=== PATIENT | female | born 1975 | race Caucasian/White ===

== ENCOUNTER → 2022-04-13 09:58 | Outpatient (CLI) | payer OTHER, SELFPAY ==
[2022-04-13 11:17] LABS: Hematocrit 40.4 % (36-46); Hemoglobin 13.5 g/dL (12.0-16.0)
[2022-04-13 11:50] LABS: Alanine Aminotransferase 20 IU/L (<35); Albumin 4.2 g/dL (3.5-5.0); Albumin Globulin Ratio 1.3 (1.0-2.8); Alkaline Phosphatase 41 U/L (38-126); Aspartate Aminotransferase 21 IU/L (14-36); BUN Creatinine Ratio 11.4 (6-22); Bilirubin Total 0.4 mg/dL (0.2-1.3); Blood Urea Nitrogen 10 mg/dL (7-17); Carbon Dioxide 25 mmol/L (22-32); Chloride 106 mmol/L (98-107); Cholesterol 243 mg/dL (140-199); Estimated Glomerular Filt Rate > 60 mL/min (>60); Globulin 3.3 g/dL (1.7-4.1); Glucose 85 mg/dL (70-100); HDL Cholesterol 57 mg/dL (40-60); HEMOLYSIS < 15 (0-50); LDL Cholesterol Calculated 164 mg/dL (<100); Potassium 4.1 mmol/L (3.4-5.1); Sodium 139 mmol/L (137-145); Total Protein 7.5 g/dL (6.3-8.2); Triglycerides 110 mg/dL (35-150)
[2022-04-15 12:19] LABS: Fecal Immunochemical Test Negative (Negative)
== END ==
PROVIDERS: PCP Family Medicine; Referring Provider Family Medicine; Visit Provider Family Medicine
DX: Z00.00 Encounter for general adult medical examination without abnormal findings (principal); Z12.11 Encounter for screening for malignant neoplasm of colon
CPT/HCPCS: 36415; 80053; 80061; 82274; 85014; 85018

== ENCOUNTER → 2022-05-05 15:47 | Outpatient (CLI) | payer OTHER, SELFPAY ==
--- NOTE | 2022-05-05 15:49 | DI.US.S_ITS ---
PROCEDURE: US PELVIC COMPLETE INDICATIONS: OVARIAN FULLNESS TECHNIQUE: Real-time scanning was performed of the pelvic organs, with image documentation. Additional endovaginal scanning was necessary due to incomplete visualization of the adnexal and endometrial structures by transabdominal scanning. COMPARISON: None. FINDINGS: Uterus: Uterus is retroverted and normal in size at 8.4 x 4.7 x 5.6 cm. The myometrium is homogeneous. The endometrium measures 17.9 mm combined thickness. Ovaries: The right ovary measures 2.0 x 3.4 x 2.0 cm, with a calculated ovarian volume of 7.0 cc. The left ovary measures 3.7 x 1.8 x 2.7 cm, with a calculated ovarian volume of 9.2 cc. The ovaries have a normal sonographic appearance. Less than 12 follicles can be seen in each ovary. No adnexal masses are seen. There is a collapsing cyst of the left ovary measuring 1.4 x 0.8 x 1.4 cm. There is a right ovarian hemorrhagic cyst measuring 2.2 x 1.4 x 1.8 cm. Other: No pathologic free abdominal or pelvic fluid. IMPRESSION: 1. The ovaries are unremarkable. There is a hemorrhagic right ovarian cyst and a collapsing left ovarian cyst. 2. Mildly thickened endometrium. Comment: Suggest repeat ultrasound in approximately 6 weeks to document decrease in size of endometrium. We strive to produce accurate, complete, and clear reports of imaging services. To assist us in improving patient care, this report was composed using standard report templates and voice recognition software. Therefore, it may contain abnormal punctuation, insertions and/or omissions. Occasional wrong-word or sound-alike substitutions may occur. Though we review the report and make efforts to correct it, we do recommend that the report be read carefully in proper context to recognize any text inaccuracies. Dictated by: Mansoor Harris M.D. on 05/05/2022 at 17:43 Approved by: Mansoor Harris M.D. on 05/05/2022 at 17:49
== END ==
PROVIDERS: PCP Family Medicine; Referring Provider Family Medicine; Visit Provider Family Medicine
DX: R10.2 Pelvic and perineal pain (principal); N83.201 Unspecified ovarian cyst, right side; N83.292 Other ovarian cyst, left side; R93.89 Abnormal findings on diagnostic imaging of other specified body structures
CPT/HCPCS: 76830; 76856

== ENCOUNTER → 2022-06-22 13:03 | Outpatient (CLI) | payer OTHER, SELFPAY ==
--- NOTE | 2022-06-22 13:06 | DI.US.S_ITS ---
PROCEDURE: US PELVIC COMPLETE INDICATIONS: FOLLOW-UP THICKENED ENDOMETIUM TECHNIQUE: Real-time scanning was performed of the pelvic organs, with image documentation. Additional endovaginal scanning was necessary due to incomplete visualization of the adnexal and endometrial structures by transabdominal scanning. COMPARISON: [facility], US, US PELVIC COMPLETE, 05/05/2022, 15:55. FINDINGS: Uterus: Uterus is anteverted and normal in size at 8.7 x 5.8 x 6.3 cm. The myometrium is homogeneous. The endometrium measures 12.9 mm combined thickness. Ovaries: The right ovary measures 1.2 x 2.5 x 1.4 cm, with a calculated ovarian volume of 2.1 cc. The left ovary measures 2.2 x 3.7 x 2.0 cm, with a calculated ovarian volume of 8.5 cc. Simple left ovarian cyst measuring 2.8 cm. Less than 12 follicles can be seen in each ovary. No adnexal masses are seen. Other: No pathologic free abdominal or pelvic fluid. IMPRESSION: 1. Endometrial complex within normal limits in thickness at 12.9 mm. 2. Resolved complex bilateral ovarian cysts and there is now a 2.8 cm simple left ovarian cyst. We strive to produce accurate, complete, and clear reports of imaging services. To assist us in improving patient care, this report was composed using standard report templates and voice recognition software. Therefore, it may contain abnormal punctuation, insertions and/or omissions. Occasional wrong-word or sound-alike substitutions may occur. Though we review the report and make efforts to correct it, we do recommend that the report be read carefully in proper context to recognize any text inaccuracies. Dictated by: Bruce GARRETT Interpreted: Jesse Isabel MD on 06/22/2022 at 14:31 Transcribed by: MARYLIN on 06/22/2022 at 14:34 Approved by: Jesse Isabel M.D. on 06/22/2022 at 20:27
--- NOTE | 2022-06-22 13:06 | DI.MG.S_ITS ---
BILATERAL DIGITAL SCREENING MAMMOGRAM 3D/2D WITH CAD: 06/22/2022 CLINICAL: Routine screening. Comparison is made to exam dated: 11/07/2020 mammogram. Both breasts are heterogeneously dense, which may obscure small masses (category c / 51-75% glandular tissue). Current study was also evaluated with a Computer Aided Detection (CAD) system. No significant masses, calcifications, or other findings are seen in either breast. There has been no significant interval change. IMPRESSION: NEGATIVE There is no mammographic evidence of malignancy. A 1 year screening mammogram is recommended. Based on the Tyrer Cuzick model (a risk assessment model) the patient's lifetime risk is 14.2% and her 10 year risk is 3.1%. According to the ACR, ACS, and NCCN guidelines, an annual breast MRI exam along with mammogram is recommended if the patient's lifetime risk is 20% or greater. This exam was interpreted at Station ID: [id number]. NOTE: For mammograms, a report in lay terms will be sent to the patient. Approximately 15% of breast malignancies will not be visualized mammographically. In the management of a palpable breast mass, a negative mammogram must not discourage biopsy of a clinically suspicious lesion. Electronically Signed By: Brock garza/jill:06/22/2022 14:13:58 letter sent: Normal Exam ACR BI-RADS Category 1: Negative 3341F
== END ==
PROVIDERS: PCP Family Medicine; Referring Provider Family Medicine; Visit Provider Family Medicine
DX: Z12.31 Encounter for screening mammogram for malignant neoplasm of breast (principal); N83.292 Other ovarian cyst, left side; R93.89 Abnormal findings on diagnostic imaging of other specified body structures
CPT/HCPCS: 76830; 76856; 77063; 77067

== ENCOUNTER → 2023-06-30 14:55 | Outpatient (CLI) | payer OTHER, SELFPAY ==
--- NOTE | 2023-06-30 | DI.MG.S_ITS ---
BILATERAL DIGITAL SCREENING MAMMOGRAM 3D/2D WITH CAD: 06/30/2023 CLINICAL: Routine screening. Comparison is made to exams dated: 06/22/2022 mammogram - [facility] and 11/07/2020 mammogram. Both breasts are heterogeneously dense, which may obscure small masses (category c / 51-75% glandular tissue). Current study was also evaluated with a Computer Aided Detection (CAD) system. There is an asymmetry in the left breast posterior depth medial region seen on the craniocaudal view only. No other significant masses, calcifications, or other findings are seen in either breast. IMPRESSION: INCOMPLETE: NEEDS ADDITIONAL IMAGING EVALUATION The asymmetry in the left breast is indeterminate. Additional views with possible ultrasound are recommended. Based on the Tyrer Cuzick model (a risk assessment model) the patient's lifetime risk is 14.1% and her 10 year risk is 3.2%. According to the ACR, ACS, and NCCN guidelines, an annual breast MRI exam along with mammogram is recommended if the patient's lifetime risk is 20% or greater. This exam was interpreted at Station ID: [id number]. NOTE: For mammograms, a report in lay terms will be sent to the patient. Approximately 15% of breast malignancies will not be visualized mammographically. In the management of a palpable breast mass, a negative mammogram must not discourage biopsy of a clinically suspicious lesion. Electronically Signed By: Brock Knox M.D. lc/:07/01/2023 16:07:07 letter sent: Additional Imaging Needed ACR BI-RADS Category 0: Incomplete 3340F
== END ==
PROVIDERS: PCP Family Medicine; Referring Provider Family Medicine; Visit Provider Family Medicine
DX: Z12.31 Encounter for screening mammogram for malignant neoplasm of breast (principal); R92.333 Mammographic heterogeneous density, bilateral breasts
CPT/HCPCS: 77063; 77067

== ENCOUNTER → 2023-07-22 08:39 | Outpatient (CLI) | payer OTHER, SELFPAY ==
--- NOTE | 2023-07-22 | DI.MG.S_ITS ---
UNILATERAL LEFT DIGITAL DIAGNOSTIC MAMMOGRAM 3D/2D WITH ADDITIONAL VIEWS: 07/22/2023 CLINICAL: Additional evaluation requested from prior study. Comparison is made to exams dated: 06/30/2023 mammogram, 06/22/2022 mammogram - [facility], and 11/07/2020 mammogram. The left breast is heterogeneously dense, which may obscure small masses (category c / 51-75% glandular tissue). There is an asymmetry in the left breast posterior depth medial region seen on the craniocaudal view only. This is not seen in additional views. No other significant masses or calcifications are seen in the breast. IMPRESSION: INCOMPLETE: NEEDS ADDITIONAL IMAGING EVALUATION The asymmetry in the left breast is indeterminate. An ultrasound is recommended. This is less prominent. The adjacent tissue, including small calcifications, are stable from prior imaging. Based on the Tyrer Cuzick model (a risk assessment model) the patient's lifetime risk is 14.1% and her 10 year risk is 3.2%. According to the ACR, ACS, and NCCN guidelines, an annual breast MRI exam along with mammogram is recommended if the patient's lifetime risk is 20% or greater. This exam was interpreted at Station ID: [id number]. NOTE: For mammograms, a report in lay terms will be sent to the patient. Approximately 15% of breast malignancies will not be visualized mammographically. In the management of a palpable breast mass, a negative mammogram must not discourage biopsy of a clinically suspicious lesion. Electronically Signed By: Brock Knox M.D. lc/:07/22/2023 11:20:33 ACR BI-RADS Category 0: Incomplete 3340F
--- NOTE | 2023-07-22 08:40 | DI.US.S_ITS ---
PROCEDURE: US BREAST LT LIMITED COMPARISON: None. INDICATIONS: evaluate abnormal mammo FINDINGS: IMPRESSION: Dictated by: Brock Knox M.D. on 07/22/2023 at 11:21 Approved by: Brock Knox M.D. on 07/22/2023 at 11:22
--- NOTE | 2023-07-22 09:28 | DI.US.S_ITS ---
Patient Name: CINDY VARGAS date: 1975 Sex: F Attending Physician: Mary Beth Indications: Date: 07/22/2023 11:21 At the request of: MARLYN MOTLEY Procedure: US breast LT limited ULTRASOUND OF LEFT BREAST: 07/22/2023 CLINICAL: Patient returns today to evaluate a focal asymmetry in the left breast. Comparison is made to exams dated: 07/22/2023 mammogram, 06/30/2023 mammogram, 06/22/2022 mammogram - [facility], and 11/07/2020 mammogram. Color flow and real-time ultrasound of the left breast were performed. Sanders scale images of the real-time examination were reviewed. No significant abnormalities were seen sonographically in the left breast. Incidental benign 3:00 cyst is present. IMPRESSION: BENIGN There is no sonographic evidence of malignancy. Incidental benign 3:00 cyst is present. There is no abnormality seen in the left breast to correspond with the mammography finding. Return to annual mammogram screening schedule is recommended. This exam was interpreted at Station ID: [id number]. Electronically Signed By: Brock Knox M.D. lc/:07/22/2023 11:21:57 letter sent: Normal Exam Ultrasound BI-RADS: 2 Benign
== END ==
LOC: MAMMO 08:40
PROVIDERS: PCP Family Medicine; Referring Provider Family Medicine; Visit Provider Family Medicine
DX: R92.8 Other abnormal and inconclusive findings on diagnostic imaging of breast (principal); R92.332 Mammographic heterogeneous density, left breast; N60.02 Solitary cyst of left breast
CPT/HCPCS: 76642; 77065; G0279

== ENCOUNTER → 2024-06-14 11:48 | Outpatient (CLI) | payer OTHER, SELFPAY ==
--- NOTE | 2024-06-14 11:51 | DI.CT.S_ITS ---
PROCEDURE: CT LE LT W CON INDICATIONS: TIBIAL PLATEAU FRACTURE TECHNIQUE: Noncontrast 1-1.5 mm axial sections acquired from the mid-patella to the proximal tibia, with coronal and sagittal reformats. COMPARISON: [facility], MR, MR KNEE LEFT WITHOUT CONTRAST, 06/01/2024, 13:19. [facility] [place], CR, XR KNEE 4+ VIEWS LEFT, 06/09/2024, 14:03. FINDINGS: Image quality: Excellent. Bones: Compared to previous MR study, again noted is comminuted and depressed fracture involving lateral tibial plateau with fracture line extending to anterior and lateral cortex of proximal tibial shaft. Slight lateral displacement of fractured fragments are seen. There is up to 7 millimeter depression at lateral tibial plateau fracture site. No other fracture or dislocation. No suspicious intraosseous lesions. No significant patellar subluxation. Mild tricompartmental osteoarthritis is seen with joint space narrowing, subchondral sclerosis and small marginal osteophyte formation. Soft tissues: There is small joint effusion. No calcified intra-articular loose bodies. No abnormal soft tissue calcifications. No popliteal cyst is seen. Distal quadriceps tendon and patellar tendon are intact. Anterior and posterior cruciate ligaments are grossly intact. IMPRESSION: 1. Comminuted, slightly displaced and depressed lateral tibial plateau fracture as above. 2. No other fracture or dislocation. Mild tricompartmental osteoarthritis. No suspicious bony lesions. 3. Small joint effusion, no calcified intra-articular loose bodies. No gross full-thickness tendon or ligament rupture. No abnormal soft tissue calcifications. Dictated by: Trey Najera M.D. on 06/14/2024 at 14:55 Approved by: Trey Najera M.D. on 06/14/2024 at 14:59
== END ==
LOC: CT 11:50
PROVIDERS: PCP Family Medicine; Referring Provider Orthopaedic Surgery Foot and Ankle Surgery; Visit Provider Orthopaedic Surgery Foot and Ankle Surgery
DX: S82.142A Displaced bicondylar fracture of left tibia, initial encounter for closed fracture (principal); M17.12 Unilateral primary osteoarthritis, left knee; M25.462 Effusion, left knee; X58.XXXA Exposure to other specified factors, initial encounter
CPT/HCPCS: 73700

== ENCOUNTER → 2024-10-12 11:26 | Outpatient (CLI) | payer OTHER, SELFPAY ==
[2024-10-12 12:16] LABS: Add Manual Diff / Slide Review NO; Basophils Absolute Auto 0 /uL (0-100); Basophils Percent Auto 0.5 % (0-2); Eosinophils Absolute Auto 100 /uL (0-450); Eosinophils Percent Auto 1.8 % (2-4); Hematocrit 42.1 % (36-46); Hemoglobin 14.2 g/dL (12.0-16.0); Lymphocytes Absolute Auto 1500 /uL (1100-4500); Lymphocytes Percent Auto 29.7 % (25-40); Mean Corpuscular HGB Conc 33.8 % (30-36); Mean Corpuscular Hemoglobin 31.5 PG (26-34); Mean Corpuscular Volume 93.3 fL (80-100); Monocytes Absolute Auto 500 /uL (0-900); Monocytes Percent Auto 9.3 % (3-14); Neutrophils Absolute Auto 2900 /uL (1500-7000); Neutrophils Percent Auto 58.7 % (50-75); Platelet Count 143 X10^3/uL (150-400); Red Blood Cell Count 4.51 X10^6/uL (4.0-5.2); Red Cell Distribution Width 13.3 % (11.6-14.8); White Blood Cell Count 4.9 X10^3/uL (4.5-11.0)
[2024-10-12 12:26] LABS: Hemoglobin A1C% w Est Avg Glu 4.9 % (4.0-6.0)
[2024-10-12 12:32] LABS: Alanine Aminotransferase 25 IU/L (<35); Albumin 4.6 g/dL (3.5-5.0); Albumin Globulin Ratio 1.4 (1.0-2.8); Alkaline Phosphatase 48 U/L (38-126); Aspartate Aminotransferase 30 IU/L (14-36); BUN Creatinine Ratio 15.3 (6-22); Bilirubin Total 0.7 mg/dL (0.2-1.3); Blood Urea Nitrogen 13 mg/dL (7-17); Calcium 9.4 mg/dL (8.4-10.2); Carbon Dioxide 25 mmol/L (22-32); Chloride 105 mmol/L (98-107); Cholesterol 288 mg/dL (140-199); Estimated Glomerular Filt Rate > 60 mL/min (>60); Globulin 3.3 g/dL (1.7-4.1); Glucose 94 mg/dL (70-99); HDL Cholesterol 74 mg/dL (40-60); HEMOLYSIS < 15 (0-50); LDL Cholesterol Calculated 196 mg/dL (<100); Potassium 4.6 mmol/L (3.4-5.1); Sodium 137 mmol/L (137-145); Total Protein 7.9 g/dL (6.3-8.2); Triglycerides 92 mg/dL (35-150)
[2024-10-12 13:13] LABS: TSH w/ Reflex to FT4 2.29 uIU/mL (0.47-4.68)
[2024-10-12 15:57] LABS: Hep C Virus Ab w/Reflex Quant NEGATIVE s/c (NEGATIVE)
== END ==
PROVIDERS: PCP Nurse Practitioner Family; Referring Provider Nurse Practitioner Family; Visit Provider Nurse Practitioner Family
DX: Z11.59 Encounter for screening for other viral diseases (principal); Z13.220 Encounter for screening for lipoid disorders; R63.5 Abnormal weight gain
CPT/HCPCS: 36415; 80053; 80061; 83036; 84443; 85025; 86803

== ENCOUNTER → 2024-10-20 16:25 | Outpatient (CLI) | payer OTHER, SELFPAY ==
--- NOTE | 2024-10-20 16:26 | DI.MG.S_ITS ---
MM screening mammo BI: 10/20/2024. BI-RADS: 2 CLINICAL: 49-year old female for bilateral screening mammogram. Tyrer-Cuzick lifetime risk of 10.7%. No personal or first-degree family history of breast cancer. PRIOR EXAMS 07/22/2023, 06/30/2023, 06/22/2022. MAMMOGRAPHY TECHNIQUE: 2D and 3D (tomosynthesis) digital mammographic views obtained, with additional images as needed for full coverage. Current study was also evaluated with a Computer Aided Detection (CAD) system. DENSITY C. The breasts are heterogeneously dense, which may obscure small masses. MAMMOGRAPHY FINDINGS Right: Benign-appearing asymmetry noted on the right. There are no suspicious masses, calcifications, or other findings in the breast. Left: No suspicious mass, asymmetry, microcalcification, or other abnormality seen. IMPRESSION: Right * No evidence of malignancy with benign findings. Left * No evidence of malignancy. RECOMMENDATIONS Bilateral * Annual screening mammography. OVERALL ASSESSMENT CATEGORY BI-RADS-2: Benign. The [employer] recommends annual screening mammography beginning at age 40 for women with average risk of breast cancer. ELECTRONICALLY SIGNED: Donnell Shepherd M.D. on 10/20/2024 at 05:58:56 PM PT Interpreting Station ID: [id number]
== END ==
LOC: MAMMO 16:26
PROVIDERS: PCP Nurse Practitioner Family; Referring Provider Nurse Practitioner Family; Visit Provider Nurse Practitioner Family
DX: Z12.31 Encounter for screening mammogram for malignant neoplasm of breast (principal); Z11.59 Encounter for screening for other viral diseases; Z13.220 Encounter for screening for lipoid disorders; R92.333 Mammographic heterogeneous density, bilateral breasts; R92.1 Mammographic calcification found on diagnostic imaging of breast
CPT/HCPCS: 77063; 77067

== ENCOUNTER 2024-12-25 11:51 | Day surgery (SDC) | payer OTHER, SELFPAY ==
--- NOTE | 2024-12-25 12:26 | P.HP_ITS ---
History of Present Illness History of Present Illness Date Patient Seen: 12/25/24 Chief complaint: SDC Narrative: For screening colonoscopy [facility] Medical History (Updated 10/12/24 @ 22:12 [facility] Hyperlipidemia Establishing care with new doctor, encounter for Constipation Left medial tibial plateau fracture (05/23/24) Family History (Updated 04/14/22 @ 10:39 by Fatemeh Rouse) Father Prostate cancer Mother Osteoporosis Pacemaker Social History household members: spouse alcohol intake: former Meds Home Medications and Allergies Home Medications ?Medication ?Instructions ?Recorded ?Confirmed ?Type sodium,potassium,mag sulfates 17.5 See Rx Instructions PO .COMPLEX 12/04/24 Rx gram-3.13 gram-1.6 gram oral soln #354 mL (Suprep Bowel Prep Kit) Allergies Allergy/AdvReac Type Severity Reaction Status Date / Time Penicillins Allergy Verified 10/12/24 10:49 aspirin (From [place]) AdvReac Rash Verified 10/12/24 10:49 citric acid (From AdvReac Rash Verified 10/12/24 10:49 [place]) sodium bicarbonate (From AdvReac Rash Verified 10/12/24 10:49 [place]) Assessment & Plan Assessment & Plan narrative: For screening colonoscopy. Risks, benefits, alternatives have been explained. Time-Based Coding :: [TOTAL MINUTES] spent with patient and on the chart (including review of chart, obtaining history, exam, reviewing outside data, placing orders, documenting exam and treatment plan, and counseling patient) on [DATE]. [employer] Expl[employer] Manager Document charge(s): No
--- NOTE | 2024-12-25 12:27 | PM.OP.COLON ---
Operative Date/Time/Diagnoses Date of procedure: 12/25/24 Time of procedure: 13:18 Pre-op diagnosis: See indication and findings Post-op diagnosis: same Procedure & Clinicians Study performed: Colonoscopy Same procedure(s) as scheduled: Yes Indications: First screening Surgeon: Keyanna Taylor Anesthesia Type: Other Procedure Notes Procedure in detail: After informed consent was obtained the patient was placed in left lateral decubitus position. The video colonoscope was introduced the rectum slowly advanced cecum. On slow withdrawal mucosa was carefully examined. Preparation was good. The scope was removed. The patient tolerated procedure well. Blood loss none Complications none Sedation mac Findings One normal colonoscopy to cecum Patient should have follow-up colonoscopy in 10 years
[2024-12-25 12:50] VITALS: BP 120/57; PULSE 48; RESP 16; TEMP 36.8; O2SAT 100
[2024-12-25] MEDS: LACTATED RINGERS 1,000 ML 42 ML IV (12:55)
[2024-12-25 13:19] VITALS: BP 117/57; RESP 17; O2SAT 57
[2024-12-25 13:25] VITALS: BP 113/55; PULSE 15; RESP 15; O2SAT 97
[2024-12-25 13:31] VITALS: BP 119/58; PULSE 53; RESP 18; O2SAT 97
== END 2024-12-25 13:40 | disposition home or self-care (01) ==
PROVIDERS: PCP Nurse Practitioner Family; Referring Provider Internal Medicine Gastroenterology; Visit Provider Internal Medicine Gastroenterology
PROC: 0DJD8ZZ Inspection of Lower Intestinal Tract, Via Natural or Artificial Opening Endoscopic (ICD-10-PCS; CPT 45378; principal; 2024-12-25 13:00)
DX: Z12.11 Encounter for screening for malignant neoplasm of colon (principal)
CPT/HCPCS: 45378; J2704